=== PATIENT | male | born 1980 | race Caucasian/White ===

== ENCOUNTER → 2024-09-13 | Day surgery (SDC) | payer BC ==
[~2024-09-13] MED LIST: FENTANYL CITRATE/PF 100MCG/2 ML INJ ONE; GLUCAGON FOR INJ 1 MG VIAL ONE; MATZIM LA240 MG PO; MULTI-VITAMIN1 EACH PO; ONDANSETRON HCL INJ 2MG/ML 2ML 2 MG/ML VIAL ONE; PROPOFOL IV EMULSION 10 MG/ML 20 ML VIAL ONE; PROPOFOL IV EMULSION 50 ML IV ONE; TESTOSTERONE INJ
[2024-09-13] MEDS: LACTATED RINGER'S 1,000 ML ONE (15:04)
[2024-09-13 18:55] VITALS: TEMP 97.4
[2024-09-13 19:15] VITALS: BP 131/88; PULSE 81; RESP 16; O2SAT 97
== END | disposition home or self-care (01) ==
LOC: OR 14:37
PROVIDERS: ATTEND Internal Medicine Gastroenterology
DX: K29.70 Gastritis, unspecified, without bleeding (principal); D12.0 Benign neoplasm of cecum; K62.1 Rectal polyp; K52.9 Noninfective gastroenteritis and colitis, unspecified; K25.9 Gastric ulcer, unspecified as acute or chronic, without hemorrhage or perforation; K31.89 Other diseases of stomach and duodenum; K22.70 Barrett's esophagus without dysplasia; K21.00 Gastro-esophageal reflux disease with esophagitis, without bleeding; K62.6 Ulcer of anus and rectum; K59.09 Other constipation; K64.8 Other hemorrhoids; Z87.19 Personal history of other diseases of the digestive system; I10 Essential (primary) hypertension; Z71.89 Other specified counseling; E29.1 Testicular hypofunction; F17.290 Nicotine dependence, other tobacco product, uncomplicated; Z79.899 Other long term (current) drug therapy; Z68.28 Body mass index [BMI] 28.0-28.9, adult; Z71.3 Dietary counseling and surveillance; Z80.0 Family history of malignant neoplasm of digestive organs; Z83.79 Family history of other diseases of the digestive system
CPT/HCPCS: 43239; 45380; 45385; 86140; J1610; J2405; J2470; J2704 ×2; J3010; J7121; 45378